=== PATIENT | male | born 1975 | race Caucasian/White ===

== ENCOUNTER 2017-11-28 21:35 | Emergency (ER) | payer OTHER ==
--- NOTE | 2017-11-28 22:45 | ER Document Report ---
ED Medical Screen (RME) - General Chief Complaint: Foreign Body Stated Complaint: POSSIBLE FOREIGN BODY IN THROAT Time Seen by Provider: 11/28/17 22:42 Mode of Arrival: Wheelchair Information source: Patient Notes: Patient is a 42-year-old male who presents to the ER today for difficulty speaking, swallowing after trying to take his nightly medications, including Flexeril, aspirin and a blood pressure medication. Patient states that he feels like a pill is stuck in the right side of his throat and whenever he tries to speak he "cannot breathe." This is according to his who is here with him at this time. Patient has never had this happen before. Patient denies any difficulty breathing if he does not try to speak. - Related Data Allergies/Adverse Reactions: No Known Allergies Allergy (Verified 12/05/12 02:05) Past Medical History - General Information source: Patient - Social History Frequency of alcohol use: Occasional Renal/ Medical History: Denies: Hx Peritoneal Dialysis Past Surgical History: Reports: Hx Orthopedic Surgery - Immunizations Hx Diphtheria, Pertussis, Tetanus Vaccination: Yes Review of Systems - Review of Systems EENT: See HPI Physical Exam - Vital signs Vitals: Temp Pulse Resp BP Pulse Ox 98.2 F 102 H 16 135/94 H 92 11/28/17 21:48 11/28/17 21:48 11/28/17 21:48 11/28/17 21:48 11/28/17 21:48 - Notes Notes: General: won't speak, but in NAD ENT: airway patent, no edema Course - Vital Signs Vital signs: Temp Pulse Resp BP Pulse Ox 98.2 F 102 H 16 135/94 H 92 11/28/17 21:48 11/28/17 21:48 11/28/17 21:48 11/28/17 21:48 11/28/17 21:48 Doctor's Discharge - Discharge Referrals: LOCALMD,NO [Primary Care Provider] - Follow up as needed
--- NOTE | 2017-11-28 22:48 | RADIOLOGY REPORT (SQ) ---
EXAM DESCRIPTION: Neck soft tissues, to x-ray views. November 28, 2017 at 10:19 PM CLINICAL HISTORY: possible FB in throat COMPARISON: None. FINDINGS: Two views of the soft tissues of the neck were submitted. Prevertebral soft tissues are within normal limits. There is no radiopaque foreign body material. Tongue piercing visualized. There are degenerative changes of the cervical spine. Airway is patent. IMPRESSION: No acute abnormalities.
[2017-11-28] MEDS ORDERED: MAG HYDROX/AL HYDROX/SIMETH SUSP 30 ML UDCUP PO ONE (23:08)
[2017-11-28] MEDS ORDERED: METOCLOPRAMIDE HCL ORAL SOLN 10 MG/10 ML UDCUP PO ONE (23:08)
[2017-11-28] MEDS ORDERED: LIDOCAINE 2% VISCOUS SOLN 20 ML UDCUP PO ONE (23:08)
--- NOTE | 2017-11-28 23:13 | ER Document Report ---
ED General - General Chief Complaint: Foreign Body Stated Complaint: POSSIBLE FOREIGN BODY IN THROAT Time Seen by Provider: 11/28/17 22:42 Mode of Arrival: Wheelchair Information source: Patient, Relative Cannot obtain history due to: Uncooperative Notes: Patient is a 42-year-old male with hypertension who presents to the ER today for difficulty speaking, swallowing after trying to take his night time medications, including Flexeril, aspirin and a blood pressure medication. Patient states that he feels like a pill is stuck in the right side of his throat and whenever he tries to speak he "cannot breathe." This is according to his who is here with him at this time. Patient has never had this happen before. Patient denies any difficulty breathing if he does not try to speak. - HPI Onset: Just prior to arrival Onset/Duration: Sudden Severity: None Pain Level: Denies Associated symptoms: Shortness of breath Exacerbated by: Denies Relieved by: Denies Similar symptoms previously: No Recently seen / treated by doctor: No - Related Data Allergies/Adverse Reactions: No Known Allergies Allergy (Verified 12/05/12 02:05) Past Medical History - General Information source: Patient, Relative, [facility] Records - Social History Smoking Status: Former Smoker Frequency of alcohol use: Occasional Drug Abuse: None Lives with: Spouse/Significant other Family History: Reviewed & Not Pertinent Patient has suicidal ideation: No Patient has homicidal ideation: No - Past Medical History Cardiac Medical History: Reports: Hx Hypertension Renal/ Medical History: Denies: Hx Peritoneal Dialysis Past Surgical History: Reports: Hx Orthopedic Surgery - Immunizations Hx Diphtheria, Pertussis, Tetanus Vaccination: Yes Review of Systems - Review of Systems Notes: REVIEW OF SYSTEMS: CONSTITUTIONAL : Denies fever, chills, or sweats. Denies recent illness. Denies weight loss, recent hospitalizations. EENT: Denies visual changes, eye pain. Denies nasal or sinus congestion or discharge. Denies sore throat, oral lesions, CARDIOVASCULAR: Denies chest pain. Denies palpitations. Denies lower extremity edema. RESPIRATORY: Denies cough, cold, or chest congestion. Denies wheezing. GASTROINTESTINAL: Denies abdominal pain or distention. Denies nausea, vomiting , or diarrhea. Denies blood in vomitus, stools, or per rectum. Denies black, tarry stools. Denies constipation. GENITOURINARY: Denies difficulty urinating, painful urination, frequency, blood in urine, or vaginal discharge. MUSCULOSKELETAL: Denies back or neck pain or stiffness. Denies joint pain or swelling. SKIN: Denies rash, lesions or sores. HEMATOLOGIC : Denies easy bruising or bleeding. LYMPHATIC: Denies swollen glands. NEUROLOGICAL: Denies confusion or altered mental status. Denies passing out or loss of consciousness. Denies dizziness or lightheadedness. Denies headache. Denies weakness or paralysis. Denies problems difficulty with ambulation, slurred speech. Denies sensory loss, numbness, or tingling. Denies seizures. PSYCHIATRIC: Denies anxiety or stress. Denies depression, suicidal ideation, or homicidal ideation. Denies visual or auditory hallucinations. PHYSICAL EXAMINATION: GENERAL: Well-appearing, well-nourished and in no acute distress. HEAD: Atraumatic, normocephalic. EYES: Pupils equal round and reactive to light, extraocular movements intact, sclera anicteric, conjunctiva are normal. ENT: Nares patent, oropharynx clear without exudates. Moist mucous membranes. NECK: Normal range of motion, supple without lymphadenopathy. No stridor LUNGS: Breath sounds clear to auscultation bilaterally and equal. No wheezes rales or rhonchi. HEART: Regular rate and rhythm without murmurs ABDOMEN: Soft, nontender, nondistended abdomen. No guarding, no rebound. No masses appreciated. Musculoskeletal: Normal range of motion, no pitting or edema. No cyanosis. NEUROLOGICAL: Cranial nerves grossly intact. Normal speech, normal gait. Normal sensory, motor exams PSYCH: Normal mood, normal affect. SKIN: Warm, Dry, normal turgor, no rashes or lesions noted. Physical Exam - Vital signs Vitals: Temp Pulse Resp BP Pulse Ox 98.2 F 102 H 16 135/94 H 92 11/28/17 21:48 11/28/17 21:48 11/28/17 21:48 11/28/17 21:48 11/28/17 21:48 - Notes Notes: PHYSICAL EXAMINATION: GENERAL: Well-appearing, well-nourished and in no acute distress. HEAD: Atraumatic, normocephalic. EYES: Pupils equal round and reactive to light, extraocular movements intact, sclera anicteric, conjunctiva are normal. ENT: Nares patent, oropharynx clear without exudates. Moist mucous membranes. NECK: Normal range of motion, supple without lymphadenopathy. No stridor. LUNGS: Breath sounds clear to auscultation bilaterally and equal. No wheezes rales or rhonchi. HEART: Regular rate and rhythm without murmurs ABDOMEN: Soft, nontender, nondistended abdomen. No guarding, no rebound. No masses appreciated. Musculoskeletal: Normal range of motion, no pitting or edema. No cyanosis. NEUROLOGICAL: Cranial nerves grossly intact. Normal speech, normal gait. Normal sensory, motor exams PSYCH: Normal mood, normal affect. SKIN: Warm, Dry, normal turgor, no rashes or lesions noted. Course - Re-evaluation Re-evalutation: Soft Tissue Neck X-Ray 11/28/17 00:00 IMPRESSION: No acute abnormalities. 11/29/17 00:07 42-year-old male presents with complaint of difficulty swallowing, shortness of breath since taking his nighttime medications. Patient refuses to speak and has provides the history. dates that the patient took approximately 5 pills prior to arrival. He had no associated choking, vomiting. He is complaining that he has a foreign body sensation in his throat. Soft tissue x- rays were reviewed and showed no foreign body. Patient is tolerating fluids. He is not vomiting. He did receive a GI cocktail and IM morphine. Patient advised to return to the emergency department if he develops a fever, cough. Patient provided the opportunity to ask questions, and express concerns. Discharge instructions discussed. Patient is agreeable with discharge home. Return indications explained and discussed with the patient who displays understanding. Patient encouraged to return to the emergency department immediately with any concerns. 11/29/17 05:41 - Vital Signs Vital signs: Temp Pulse Resp BP Pulse Ox 98.2 F 102 H 18 125/88 H 96 11/28/17 21:48 11/28/17 21:48 11/29/17 00:45 11/29/17 00:45 11/29/17 00:45 - Diagnostic Test Radiology reviewed: Image reviewed, Reports reviewed Discharge - Discharge Clinical Impression: Pill esophagitis, Throat pain, Foreign body sensation in throat Condition: Good Disposition: HOME, SELF-CARE Instructions: Esophagitis ([facility]) Additional Instructions: Follow up with your physician tomorrow for further care or return to the ED IMMEDIATELY if symptoms worsen or new concerns occur. If you cannot afford to follow up with your primary care physician a list of low cost clinics have been provided at the end of your discharge papers as well. Forms: Elevated Blood Pressure Referrals: LOCALMD,NO [NO LOCAL MD] - Follow up as needed
[2017-11-29] MEDS ORDERED: NORMAL SALINE 1000 ML 1,000 ML IV ONE (00:02)
[2017-11-29] MEDS ORDERED: MORPHINE SULFATE 10 MG/ML INJ IM ONE (00:03)
[2017-11-29 00:49] VITALS: BP 125/88
== END 2017-11-29 01:00 | disposition home or self-care (01) ==
LOC: ER 21:35
DX: K20.8 Other esophagitis (principal); R07.0 Pain in throat; R09.89 Other specified symptoms and signs involving the circulatory and respiratory systems; R13.10 Dysphagia, unspecified; R06.02 Shortness of breath; I10 Essential (primary) hypertension; Z79.899 Other long term (current) drug therapy; Z79.82 Long term (current) use of aspirin; Z87.891 Personal history of nicotine dependence
CPT/HCPCS: 99283; 96372; 70360; J3490; J2270